=== PATIENT | female | born 1990 | race Caucasian/White ===

== ENCOUNTER 2017-10-01 06:36 | Emergency (ER) | payer BC, MEDICAID ==
[2017-10-01] MEDS ORDERED: 0.9 % SODIUM CHLORIDE 1000ML 1,000 ML IV ONE (06:49)
[2017-10-01] MEDS ORDERED: ONDANSETRON HCL IV 4 MG/2 ML VIAL IVP ONE ×2 (06:49→07:40)
[2017-10-01] MEDS ORDERED: 0.9 % SODIUM CHLORIDE 1,000 ML BAG IV ONE (07:07)
[2017-10-01] MEDS ORDERED: MORPHINE SULFATE 5 MG/ML PFS IVP ONE (07:08)
[2017-10-01 07:16] LABS: BASO % 0.5 % (0-6); EOS % 3.2 % (0-6); GRAN % 40.3 % (47-80); HEMATOCRIT 41.6 % (35.0-47.0); HEMOGLOBIN 13.7 gm/dl (11.6-16.0); LYMPH % 50.1 % (16-45); MEAN CELL VOLUME 89.7 fl (81-97); MEAN CORPUSCULAR HEMOGLOBIN 29.5 pg (27-33); MEAN CORPUSCULAR HGB CONC 32.9 g/dl (32-36); MEAN PLATELET VOLUME 10.2 fl (7.4-10.4); MONO % 5.9 % (0-9); PLATELET COUNT 310 K/uL (130-400); RED BLOOD COUNT 4.64 M/uL (3.80-5.40); WHITE BLOOD COUNT W/O DIFF 11.1 K/uL (4.2-12.2)
--- NOTE | 2017-10-01 07:18 | Emergency Department Record ---
History of Present Illness - General Chief complaint: Flank Pain Stated complaint: RIGHT SIDE PAIN Time Seen by Provider: 10/01/17 07:02 Source: Patient Mode of Arrival: Ambulatory Limitations: No limitations - History of Present Illness Initial comments: The patient is here due to a 3 hour hx of R flank pain. The pain is sharp and stabbing and intermittently radiates to the RLQ. She has had nausea and vomiting with the pain. She has no hx of previous problems with the R side of the abdomen but has had a similar problem on the L and was diagnosed with a L ovarian cyst that was ruptured. She denies any previous illnesses. MD Complaint: Other Onset/Timin -: Hour(s) Location: Other Radiation: RLQ Severity scale (1-10): 10 Quality: Sharp Consistency: Constant Improves with: None Worsens with: None Associated Symptoms: Nausea/vomiting - Related Data Home Medications Medication Instructions Recorded Confirmed Last Taken Lamotrigine [Lamictal Xr] 50 mg PO DAILY 10/01/17 10/01/17 Unknown Medroxyprogesterone Acetate [Depo 150 mg IM ASDIR 10/01/17 10/01/17 Unknown Provera] Prazosin HCl 2 mg PO DAILY 10/01/17 10/01/17 Unknown Quetiapine Fumarate [Seroquel] 50 mg PO DAILY 10/01/17 10/01/17 Unknown Previous Rx's Medication Instructions Recorded Hydrocodone/Acetaminophen [[place] 1 - 2 each PO .EVERY 4-6 HRS PRN 10/01/17 5-325 Tablet] #20 tablet Ibuprofen [Motrin] 800 mg PO TID PRN #20 tab 10/01/17 Tamsulosin HCl [Flomax] 0.4 mg PO DAILY #7 cap.er.24h 10/01/17 Allergies Allergy/AdvReac Type Severity Reaction Status Date / Time aripiprazole [From Abilify] Allergy SWELLING Verified 10/01/17 06:51 (GENERAL) Travel Screening - Travel/Exposure Within Last 30 Days Have you traveled within the last 30 days?: No - Travel Symptoms Symptom Screening: None Review of Systems Constitutional: Denies: Chills, Fever Eyes: Denies: Eye discharge ENT: Denies: Congestion Respiratory: Denies: Cough Past Medical History - SOCIAL HISTORY Smoking Status: Light tobacco smoker (<10/day) - RESPIRATORY Hx Respiratory Disorders: Yes Hx Asthma: Yes - CARDIOVASCULAR Hx Cardio Disorders: No - NEURO Hx Neuro Disorders: Yes Hx Seizures: Yes - GI Hx GI Disorders: No - Hx Genitourinary Disorders: No - ENDOCRINE Hx Endocrine Disorders: No - MUSCULOSKELETAL Hx Musculoskeletal Disorders: Yes Hx Back Injury: Yes - PSYCH Hx Psych Problems: Yes Hx Depression: Yes - HEMATOLOGY/ONCOLOGY Hx Hematology/Oncology Disorders: No Family Medical History Any Significant Family History?: Yes Hx Cancer: Grandparents Hx Diabetes: Grandparents Physical Exam - General General Appearance: Alert, Oriented x3, Cooperative, No acute distress - Head Head exam: Atraumatic, Normocephalic, Normal inspection - Eye Eye exam: Normal appearance, PERRL - Neck Neck exam: Normal inspection, Full ROM. negative: Tenderness - Respiratory Respiratory exam: Normal lung sounds bilaterally. negative: Respiratory distress - Cardiovascular Cardiovascular Exam: Regular rate, Normal rhythm, Normal heart sounds - GI/Abdominal GI/Abdominal exam: Soft. negative: Guarding, Rebound, Rigid, Tenderness (The abdomen is very nontender in all 4 quads.) - Extremities Extremities exam: Normal inspection, Full ROM, Normal capillary refill. negative: Tenderness - Neurological Neurological exam: Alert, Normal gait, Oriented X3. negative: Abnormal gait, Motor sensory deficit Course Vital Signs 10/01/17 06:50 Temperature 97.9 F Pulse Rate [ 71 Pulse Ox Probe] Respiratory 18 Rate Blood Pressure 111/90 [Right Arm] Pulse Ox 96 - Reevaluation(s) Reevaluation #1: The patient is doing better at this time. Her pain is resolving and her nausea is gone. I did explain the CT report to her and the need for Urology F/U. 10/01/17 08:26 Reevaluation #2: The patient is doing well at this time. Her pain is well controlled and she feels comfortable going home. I did get the patient an appointment with Dr. Valero for today at 1:30 and did consult with him on the case. 10/01/17 09:40 Medical Decision Making - Data Complexity MDM Data: Labs Ordered and/or Reviewed, X-Ray Ordered and/or Reviewed - Lab Data Result diagrams: 10/01/17 07:10 10/01/17 07:10 - Radiology Data Radiology results: Report reviewed (CT: 3.5 mm R UVJ stone with mild to mod hydro.) Disposition Disposition: Discharge Clinical Impression: Ureteral calculus Disposition: Home, Self-Care Condition: (2) Stable Instructions: Renal Colic (ED) Additional Instructions: Please take the Motrin and or [place] for pain if needed. Please use the Flomax if given the OK by Dr. Valero. Keep the appointment at 1:30 today in the specialty clinic. Return to the ER for any increased pain, fever, or vomiting. Prescriptions: Hydrocodone/Acetaminophen [[place] 5-325 Tablet] 1 - 2 each PO .EVERY 4-6 HRS PRN #20 tablet PRN Reason: Pain Ibuprofen [Motrin] 800 mg PO TID PRN #20 tab PRN Reason: Pain Tamsulosin HCl [Flomax] 0.4 mg PO DAILY #7 cap.er.24h Referrals: [facility] Specialty Clinics [Provider Group] Forms: Patient Portal Access Time of Disposition: 09:39 Quality - Quality Measures Quality Measures: N/A - Blood Pressure Screening View Details: Yes Does Patient Have Any of the Following: No Blood Pressure Classification: Hypertensive Reading Systolic Measurement: 136 Diastolic Measurement: 90 Screening for High Blood Pressure: < Pre-Hypertensive BP, F/U Documented > [ G8950] Pre-Hypertensive Follow-up Interventions: Referral to alternative/primary care provider.
[2017-10-01 07:21] LABS: URINE APPEARANCE CLEAR; URINE BILIRUBIN SMALL (NEGATIVE); URINE BLOOD LARGE (NEGATIVE); URINE COLOR YELLOW; URINE GLUCOSE (UA) NEGATIVE (NEGATIVE); URINE KETONE NEGATIVE (NEGATIVE); URINE LEUKOCYTE ESTERASE TRACE (NEGATIVE); URINE UROBILINOGEN 0.2 E.U./dL (0.20 - 1.00)
[2017-10-01 07:24] LABS: HCG,QUALITATIVE URINE NEGATIVE (NEGATIVE)
[2017-10-01 07:25] LABS: BLOOD UREA NITROGEN 11 mg/dL (6-20); CREATININE 0.6 mg/dL (0.5-0.9); EST GLOMERULAR FILTRATION RATE > 60 mL/min
[2017-10-01 07:26] LABS: TOTAL PROTEIN 7.5 g/dL (6.6-8.7)
[2017-10-01 07:27] LABS: URINE NITRITE NEGATIVE (NEGATIVE); URINE WBC 0 - 2 (0-2/hpf)
[2017-10-01 07:28] LABS: GLUCOSE,RANDOM 116 mg/dL (74-109)
[2017-10-01] MEDS ORDERED: KETOROLAC 30 MG/ML VIAL IVP ONE ×2 (07:28→08:45)
[2017-10-01 07:29] LABS: URINE BACTERIA 1+
[2017-10-01 07:30] LABS: ALBUMIN 4.4 g/dL (4.0-5.0); ALKALINE PHOSPHATASE 63 U/L (35-104); ALT/SGPT 15 U/L (<33); AST/SGOT 16 U/L (10.0-35.0)
[2017-10-01 07:31] LABS: BILIRUBIN,DIRECT < 0.2 mg/dL (0-0.3); LIPASE 16 U/L (13-60)
[2017-10-01] MEDS ORDERED: HYDROMORPHONE HCL 1 MG/ML SYRINGE IVP ONE (08:11)
--- NOTE | 2017-10-01 20:09 | CT SCAN REPORT ---
EXAM: CT SCAN ABDOMEN/PELVIS WO CONTRAST HISTORY: RIGHT FLANK PAIN WITH NAUSEA AND VOMITING TODAY. PRIOR GASTRIC SLEEVE SURGERY AND OVARIAN CYST REMOVAL. TECHNIQUE: Helical CT examination of the abdomen and pelvis is performed without oral or intravenous contrast administration. Lack of oral and IV contrast utilization limits evaluation of the bowel and solid viscera, respectively. COMPARISON: Ultrasound pelvis with transvaginal imaging dated 07/28/2010. FINDINGS: There is minimal linear scarring vs. atelectasis in the lateral left lung base. A tiny subpleural nodule in the lateral right lung base is present measuring 3 mm. This is nonspecific but likely postinflammatory given patient age. There is subtle ground-glass opacity within the lingula consistent with atelectasis or less likely infiltrate. No pleural or pericardial effusion. The heart is not enlarged. No focal abnormality demonstrated within the liver, spleen, pancreas, nor adrenal glands. The gallbladder is unremarkable and no biliary ductal dilatation is seen. No intraabdominal nor retroperitoneal lymphadenopathy is identified. The vasculature, as visualized, is normal in appearance. The right kidney is mildly enlarged. There is mild to moderate right hydroureteronephrosis down to the level just proximal to the UVJ, where there is an obstructing calculus measuring 3.5 mm in diameter. The left kidney and left renal collecting system are normal in appearance. Post gastric sleeve surgery changes are present. No gross bowel dilatation nor bowel wall thickening. The appendix is visualized in the right upper quadrant and is normal in appearance. No pelvic mass, lymphadenopathy, or free pelvic fluid. Evaluation of the urinary bladder is limited by lack of distention. The uterus is normal in size. A dominant right ovarian follicle/cyst is suggested measuring 2.2 x 2.4 cm. No lytic or blastic bone lesion. IMPRESSION: 1. A 3.5 MM OBSTRUCTING CALCULUS IN THE DISTAL RIGHT URETER JUST PROXIMAL TO THE UVJ CAUSING MILD TO MODERATE RIGHT HYDROURETERONEPHROSIS. 2. POST GASTRIC SLEEVE SURGERY CHANGES. 3. LOW-DENSITY STRUCTURE IN THE RIGHT OVARY MEASURING 2.4 X 2.3 CM. THIS IS NONSPECIFIC BUT LIKELY A DOMINANT FOLLICLE/CYST. 4. SMALL AREA OF GROUND-GLASS OPACITY WITHIN THE INFERIOR LINGULA CONSISTENT WITH ATELECTASIS OR LESS LIKELY INFILTRATE. JOB NUMBER: [id number] & [id number] [facility]
== END 2017-10-01 09:45 | disposition home or self-care (01) ==
LOC: ER 06:36
DX: N13.2 Hydronephrosis with renal and ureteral calculous obstruction (principal); R10.31 Right lower quadrant pain; R11.2 Nausea with vomiting, unspecified
CPT/HCPCS: 74176; 80048; 80076; 81001; 81025; 83690; 85025; 96374; 96375; 96376; 99284; J1170; J1885; J2405; J7030

== ENCOUNTER 2018-05-21 21:27 | Observation (INO) | payer MEDICAID ==
[2018-05-21] MEDS ORDERED: IPRATROPIUM/ALBUTEROL (0.5MG/3MG) NEB INH ONE (21:34)
[2018-05-21] MEDS ORDERED: PREDNISONE 20 MG TAB PO ONE (21:34)
[2018-05-21] MEDS ORDERED: ALBUTEROL SULFATE (0.083%) 2.5 MG/3 ML NEB INH ONE (21:41)
[2018-05-21] MEDS ORDERED: IPRATROPIUM BR 0.02% NEB (0.5MG) INH ONE (21:41)
--- NOTE | 2018-05-21 21:44 | Emergency Department Record ---
History of Present Illness - General Chief Complaint: Shortness of breath Stated Complaint: WINSOME,COUGH,ELEVATED TEMP Time Seen by Provider: 05/21/18 21:34 Source: Patient Mode of Arrival: Ambulatory Limitations: No limitations - History of Present Illness Initial Comments: 27 yo female presents to ED for evaluation of difficulty in breathing, wheezing , and fever symptoms that began 4-5 days ago. Patient reports a previous history of exercise-induced asthma previously, denies regular exacerbations. Patient reports that she was seen in [facility] 3 days ago for her symptoms ( not as severe), was not given any prescriptions for her symptoms. Patient denies health problems at her baseline. MD Complaint: Shortness of breath Onset/Timin -: Days(s) Severity: Moderate Consistency: Constant Improves With: Nothing Worsens With: Coughing Known History Of: Asthma Context: Recent URI Associated Symptoms: Denies other symptoms Treatments Prior to Arrival: None - Related Data Home Oxygen Therapy: No Home Medications Medication Instructions Recorded Confirmed Last Taken Medroxyprogesterone Acetate [Depo 150 mg IM ASDIR 05/21/18 05/21/18 Unknown Provera] Allergies Allergy/AdvReac Type Severity Reaction Status Date / Time aripiprazole [From Abilify] Allergy SWELLING Verified 10/01/17 06:51 (GENERAL) Review of Systems Constitutional: Reports: Fever. Denies: Chills, Night sweats Eyes: Denies: Eye discharge, Eye pain ENT: Denies: Congestion, Ear pain, Epistaxis Respiratory: Reports: Cough, Dyspnea, Wheezes Cardiovascular: Reports: Dyspnea on exertion. Denies: Chest pain, Edema Endocrine: Denies: Fatigue, Heat or cold intolerance Gastrointestinal: Denies: Abdominal pain, Nausea, Vomiting Genitourinary: Denies: Incontinence, Retention Musculoskeletal: Denies: Arthralgia, Back pain Skin: Denies: Bruising, Change in color Neurological: Denies: Abnormal gait, Confusion, Headache, Seizure Psychiatric: Denies: Anxiety Hematological/Lymphatic: Denies: Anemia, Blood Clots Past Medical History - SOCIAL HISTORY Smoking Status: Light tobacco smoker (<10/day) - RESPIRATORY Hx Respiratory Disorders: Yes Hx Asthma: Yes - CARDIOVASCULAR Hx Cardio Disorders: No - NEURO Hx Neuro Disorders: Yes Hx Seizures: Yes - GI Hx GI Disorders: No - Hx Genitourinary Disorders: No - ENDOCRINE Hx Endocrine Disorders: No - MUSCULOSKELETAL Hx Musculoskeletal Disorders: Yes Hx Back Injury: Yes - PSYCH Hx Psych Problems: Yes Hx Depression: Yes - HEMATOLOGY/ONCOLOGY Hx Hematology/Oncology Disorders: No Family Medical History Hx Cancer: Grandparents Hx Diabetes: Grandparents Physical Exam - General General Appearance: Alert, Oriented x3, Cooperative, Moderate distress Limitations: No limitations - Head Head exam: Atraumatic, Normocephalic, Normal inspection Head exam detail: negative: Abrasion, Contusion, Mcgill's sign, General tenderness, Hematoma, Laceration - Eye Eye exam: Normal appearance. negative: Conjunctival injection, Periorbital swelling, Periorbital tenderness, Scleral icterus - ENT Ear exam: negative: Auricular hematoma, Auricular trauma Nasal Exam: negative: Active bleeding, Discharge, Dried blood, Foreign body Mouth exam: negative: Drooling, Laceration, Muffled voice, Tongue elevation - Neck Neck exam: Normal inspection. negative: Meningismus, Tenderness - Respiratory Respiratory exam: Decreased breath sounds, Respiratory distress, Wheezes. negative: Rhonchi, Stridor - Cardiovascular Cardiovascular Exam: Normal rhythm, Normal heart sounds, Tachycardia - GI/Abdominal GI/Abdominal exam: Soft. negative: Rebound, Rigid, Tenderness - Rectal Rectal exam: Deferred - exam: Deferred - Extremities Extremities exam: Normal inspection. negative: Calf tenderness, Pedal edema, Tenderness - Back Back exam: Denies: CVA tenderness (R), CVA tenderness (L) - Neurological Neurological exam: Alert, Normal gait, Oriented X3 - Psychiatric Psychiatric exam: Normal affect, Normal mood - Skin Skin exam: Normal color. negative: Abrasion Type of lesion: negative: abrasion Course Vital Signs 05/21/18 21:32 Temperature 98.7 F Pulse Rate [ 112 H Pulse Ox Probe] Respiratory 32 H Rate Blood Pressure 117/65 [Left Arm] Pulse Ox 91 L - Reevaluation(s) Reevaluation #1: 05/21/18 21:43 Duoneb ordered to be given followed by Prednisone 60 mg. Will then obtain CXR and reassess, likely repeat albuterol treatment at that time. Reevaluation #2: 05/21/18 22:29 Patient was reassesssed follwoing return from radiology: RR 26, biox 90-93%, pulse 125. Will place IV, obtain laboratory studies and D-dimer, initiate treatment for bronchitis with Zithromax and likely admit as she has not significantly improved following 2nd breathing treatment. Reevaluation #3: 05/21/18 23:09 Laboratory studies were reviewed D-Dimer 0.39. WBC 13.8. Labs are otherwise grossly unremarkable for an acute process. CXR: Subtle opacity LLL Reevaluation #4: 05/21/18 23:19 Patient was reassessed and updated on her laboratory and CXR findings, resting more comfortably on 2 L NC. Will admit for observation and pulmonary toilet as well as antibiotics and IV Solumedrol at this time. Patient and her mother are in agreement with the plan of care as discussed. Reevaluation #5: 05/22/18 06:45 Case was discussed with Telma (Admitting [employer]), will accept admission at this time. Medical Decision Making - Lab Data Result diagrams: 05/22/18 08:28 05/22/18 08:28 Disposition Disposition: Admit Clinical Impression: Hypoxia CAP (community acquired pneumonia) Qualifiers: Laterality: left Lung location: lower lobe of lung Qualified Code(s): J18.1 - Lobar pneumonia, unspecified organism Disposition: Still a Patient at [facility] Decision to Admit: Admit from ER Decision to Admit Date: 05/21/18 Decision to Admit Time: 23:21 Condition: (2) Stable Time of Disposition: 23:21 Quality - Quality Measures Quality Measures: N/A - Blood Pressure Screening Does Patient Have Any of the Following: No Blood Pressure Classification: Hypertensive Reading Systolic Measurement: 138 Diastolic Measurement: 95 Screening for High Blood Pressure: < First Hypertensive BP, F/U Documented > [ G8950] First Hypertensive Follow-up Interventions: Referral to alternative/primary care provider.
[2018-05-21] MEDS ORDERED: AZITHROMYCIN 500 MG in 0.9 % SODIUM CHLORIDE 250ML 250 ML IVPB ONE (22:28)
[2018-05-21] MEDS ORDERED: 0.9 % SODIUM CHLORIDE 1000ML 1,000 ML IV SCH (22:30)
[2018-05-21 22:40] LABS: BASO % 0.2 % (0-6); EOS % 3.7 % (0-6); GRAN % 65.9 % (47-80); HEMATOCRIT 41.7 % (35.0-47.0); HEMOGLOBIN 13.8 gm/dl (11.6-16.0); LYMPH % 24.9 % (16-45); MEAN CELL VOLUME 91.9 fl (81-97); MEAN CORPUSCULAR HEMOGLOBIN 30.4 pg (27-33); MEAN CORPUSCULAR HGB CONC 33.1 g/dl (32-36); MEAN PLATELET VOLUME 9.7 fl (7.4-10.4); MONO % 5.3 % (0-9); PLATELET COUNT 272 K/uL (130-400); RED BLOOD COUNT 4.54 M/uL (3.80-5.40); RED CELL DISTRIBUTION WIDTH 12.5 % (11.5-14.5); WHITE BLOOD COUNT W/O DIFF 13.8 K/uL (4.2-12.2)
[2018-05-21 22:53] LABS: BLOOD UREA NITROGEN 7 mg/dL (6-20); CREATININE 0.6 mg/dL (0.5-0.9); EST GLOMERULAR FILTRATION RATE > 60 mL/min
[2018-05-21 22:54] LABS: TOTAL PROTEIN 7.6 g/dL (6.6-8.7)
[2018-05-21 22:56] LABS: GLUCOSE,RANDOM 139 mg/dL (74-109)
[2018-05-21 22:58] LABS: ALB/GLOB RATIO 1.4 (1.1-1.8); ALBUMIN 4.4 g/dL (4.0-5.0); ALT/SGPT 13 U/L (<33); AST/SGOT 15 U/L (10.0-35.0)
[2018-05-21 22:59] LABS: ALKALINE PHOSPHATASE 98 U/L (35-104)
[2018-05-21] MEDS ORDERED: ALBUTEROL SULFATE (0.083%) 2.5 MG/3 ML NEB INH PRN (23:55)
[2018-05-21] MEDS ORDERED: MEDROXYPROGESTERONE ACETATE 150 MG/ML VIAL IM SCH (23:55)
[2018-05-21] MEDS ORDERED: 0.9 % SODIUM CHLORIDE 1000ML 1,000 ML IV PRN (23:55)
[2018-05-22] MEDS ORDERED: CEFTRIAXONE SODIUM 1 GM in 0.9 % SODIUM CHLORIDE 100ML 100 ML IVPB SCH (01:00)
[2018-05-22] MEDS ORDERED: LAMOTRIGINE 100 MG TABLET PO SCH (01:00)
[2018-05-22] MEDS: MIRTAZAPINE 15 MG TABLET PO SCH ×2 (01:02→22:51)
[2018-05-22] MEDS: BUPROPION HCL 150 MG TAB.SR.12H PO SCH ×4 (01:02→10:50)
[2018-05-22] MEDS: QUETIAPINE FUMARATE 25 MG TABLET PO SCH ×2 (01:02→22:51)
[2018-05-22] MEDS: IPRATROPIUM/ALBUTEROL (0.5MG/3MG) NEB INH SCH ×6 (01:21→21:41)
--- NOTE | 2018-05-22 07:18 | RADIOLOGY REPORT ---
EXAM: CHEST, TWO VIEWS HISTORY: DIFFICULTY IN BREATHING. TECHNIQUE: Frontal and lateral views of the chest were performed. FINDINGS: The heart size is normal. There is a subtle opacity projecting over the left lower lobe. No pleural effusion. Mild degenerative change of the thoracic spine. IMPRESSION: 1. SUBTLE OPACITY PROJECTING OVER THE LEFT LOWER WITH MILD BRONCHIAL WALL THICKENING. NO PLEURAL EFFUSION. 2. MILD DEGENERATIVE CHANGE OF THE THORACIC SPINE. JOB NUMBER: [id number] [facility]
[2018-05-22 08:32] LABS: BASO % 0.3 % (0-6); HEMATOCRIT 40.3 % (35.0-47.0); LYMPH % 14.6 % (16-45); MEAN CELL VOLUME 91.8 fl (81-97); MEAN CORPUSCULAR HEMOGLOBIN 29.6 pg (27-33); MEAN CORPUSCULAR HGB CONC 32.3 g/dl (32-36); MEAN PLATELET VOLUME 9.8 fl (7.4-10.4); MONO % 5.1 % (0-9); PLATELET COUNT 294 K/uL (130-400); RED BLOOD COUNT 4.39 M/uL (3.80-5.40); RED CELL DISTRIBUTION WIDTH 12.5 % (11.5-14.5); WHITE BLOOD COUNT W/O DIFF 11.9 K/uL (4.2-12.2)
[2018-05-22 08:58] LABS: BLOOD UREA NITROGEN 7 mg/dL (6-20); CREATININE 0.6 mg/dL (0.5-0.9); EST GLOMERULAR FILTRATION RATE > 60 mL/min; GLUCOSE,RANDOM 162 mg/dL (74-109)
[2018-05-22] MEDS ORDERED: AZITHROMYCIN 500 MG TABLET PO ONE (09:03)
[2018-05-22] MEDS ORDERED: METHYLPREDNISOLONE PF 125MG/VIAL IVP SCH (10:00)
[2018-05-22] MEDS: CEFDINIR 300 MG CAPSULE PO SCH ×2 (10:35→22:52)
[2018-05-22] MEDS: PREDNISONE 20 MG TAB PO SCH (10:36)
--- NOTE | 2018-05-22 11:40 | History & Physical ---
History of Present Illness - Date of Service Date of Service for History & Physical: 05/22/18 - History of Present Illness Admitting Diagnosis: Hypoxia. CAP History of Present Illness: PMHx: Schitzoaffective Disorder, Smoker Pt states that 5 days ago she had nasal discharge/congestion, with cough, and ear pain. [facility] and determined not bacterial infection at the time. She continued to smoke and progressively became worse over the next few days. She felt SOB, had cough and wheezing so decided to go to ED. ED course: Elevated WBC count. Tachycardic. CXR positive for PNA. Hypoxic, requiring 2L NC. Pt was diagnosed with CAP and admitted for further treatment and observation. Today she states that she feels that she is better than yesterday. She feels less SOB. Still complains of cough and wheezing. Travel Screening - Travel/Exposure Within Last 30 Days Have you traveled within the last 30 days?: No - Travel/Exposure Within Last Year Have you traveled outside the [place] in the last year?: No - Additonal Travel Details Have you been exposed to anyone with a communicable illness?: No - Travel Symptoms Symptom Screening: None Review of Systems Constitutional: Denies: Chills, Fever, Night sweats Eyes: Denies: Eye discharge, Eye pain ENT: Denies: Congestion, Ear pain, Epistaxis, Throat pain Respiratory: Reports: Cough, Dyspnea, Wheezes. Denies: Hemoptysis, Stridor Cardiovascular: Reports: Dyspnea on exertion. Denies: Chest pain, Edema, Palpitations Endocrine: Reports: Fatigue. Denies: Heat or cold intolerance Gastrointestinal: Denies: Abdominal pain, Constipation, Diarrhea, Nausea, Vomiting Genitourinary: Denies: Dysuria, Frequency, Hematuria, Incontinence, Retention Musculoskeletal: Denies: Arthralgia, Back pain Skin: Denies: Bruising, Change in color Neurological: Denies: Abnormal gait, Confusion, Headache, Seizure Psychiatric: Denies: Anxiety Hematological/Lymphatic: Denies: Anemia, Blood Clots Past Medical History - SOCIAL HISTORY Smoking Status: Light tobacco smoker (<10/day) - RESPIRATORY Hx Respiratory Disorders: Yes Hx Asthma: Yes - CARDIOVASCULAR Hx Cardio Disorders: No - NEURO Hx Neuro Disorders: Yes Hx Seizures: Yes - GI Hx GI Disorders: No - Hx Genitourinary Disorders: No - ENDOCRINE Hx Endocrine Disorders: No - MUSCULOSKELETAL Hx Musculoskeletal Disorders: Yes Hx Back Injury: Yes - PSYCH Hx Psych Problems: Yes Hx Depression: Yes - HEMATOLOGY/ONCOLOGY Hx Hematology/Oncology Disorders: No Family Medical History Hx Cancer: Grandparents Hx Diabetes: Grandparents H&P Meds/Allergies - Allergies Allergies: Allergies Allergy/AdvReac Type Severity Reaction Status Date / Time aripiprazole [From Abilify] Allergy SWELLING Verified 10/01/17 06:51 (GENERAL) - Home Medications Home Medications Medication Instructions Recorded Confirmed Last Taken Medroxyprogesterone Acetate [Depo 150 mg IM ASDIR 05/21/18 05/21/18 Unknown Provera] - Active Medications Active Medications: Current Medications Acetaminophen (Tylenol 500mg Tab) 1,000 mg PO Q6H PRN PRN Reason: PAIN - MILD(1-4)/FEVER Albuterol Sulfate () 2.5 mg INH RESP.Q2H PRN PRN Reason: DIFFICULTY IN BREATHING Albuterol/Ipratropium (Duoneb) 3 ml INH RESP.Q4H [facility] Last Admin: 05/22/18 10:04 Dose: 3 ml Azithromycin (Zithromax) 250 mg PO DAILY [facility] Stop: 05/27/18 00:00 Cefdinir (Cefdinir) 300 mg PO BID [facility] Stop: 06/01/18 00:00 Last Admin: 05/22/18 10:35 Dose: 300 mg Mirtazapine (Remeron) 30 mg PO QHS [facility] Last Admin: 05/22/18 01:02 Dose: 30 mg Non-Formulary Medication (Lamotrigine [Lamictal Xr]) 50 mg PO DAILY [facility] Non-Formulary Medication (Prazosin Hcl [Prazosin Hcl]) 2 mg PO DAILY [facility] Prednisone (Prednisone 20mg) [facility] Stop: 05/26/18 00:00 Last Admin: 05/22/18 10:36 Dose: 60 mg Quetiapine Fumarate (Seroquel) 50 mg PO QHS [facility] Last Admin: 05/22/18 01:02 Dose: 50 mg Physical Exam - Vital Signs Vital Signs: Vital Signs - Last 24 Hrs Temp Pulse Pulse Resp BP BP Pulse Ox 05/22/18 10:06 98 H 18 99 05/22/18 01:24 112 H 22 93 L 05/22/18 00:00 98.7 F 113 H 20 138/95 92 L 05/21/18 23:46 111 H 32 H 102/65 93 L 05/21/18 22:50 111 H 94 L 05/21/18 21:57 112 H 22 98 05/21/18 21:42 116 H 20 92 L 05/21/18 21:32 98.7 F 112 H 32 H 117/65 91 L - General General Appearance: Alert, Oriented x3, Cooperative, No acute distress Limitations: No limitations - Head Head exam: Atraumatic, Normocephalic, Normal inspection Head exam detail: negative: Abrasion, Contusion, Mcgill's sign, General tenderness, Hematoma, Laceration - Eye Eye exam: Normal appearance, EOMI. negative: Conjunctival injection, Periorbital swelling, Periorbital tenderness, Scleral icterus - ENT ENT exam: Mucous membranes moist, Normal external ear exam Ear exam: negative: Auricular hematoma, Auricular trauma Nasal Exam: Normal inspection. negative: Active bleeding, Discharge, Dried blood, Foreign body Mouth exam: Normal external inspection. negative: Drooling, Laceration, Muffled voice, Tongue elevation - Neck Neck exam: Normal inspection. negative: Meningismus, Tenderness - Respiratory Respiratory exam: Decreased breath sounds, Wheezes (throughout all lung jeter) . negative: Rhonchi, Stridor - Cardiovascular Cardiovascular Exam: Normal rhythm, Normal heart sounds, Tachycardia - GI/Abdominal GI/Abdominal exam: Soft, Normal bowel sounds. negative: Rebound, Rigid, Tenderness - Rectal Rectal exam: Deferred - exam: Deferred - Extremities Extremities exam: Normal inspection. negative: Calf tenderness, Pedal edema, Tenderness - Back Back exam: Denies: CVA tenderness (R), CVA tenderness (L) - Neurological Neurological exam: Alert, Normal gait, Oriented X3 - Psychiatric Psychiatric exam: Normal affect, Normal mood - Skin Skin exam: Normal color. negative: Abrasion Type of lesion: negative: abrasion Results - Labs Result Diagrams: 05/22/18 08:28 05/22/18 08:28 Labs Last 24 Hours: Laboratory Results - last 24 hr 05/21/18 05/21/18 05/21/18 22:35 22:35 22:35 WBC 13.8 H RBC 4.54 Hgb 13.8 Hct 41.7 MCV 91.9 MCH 30.4 MCHC 33.1 RDW 12.5 Plt Count 272 MPV 9.7 Gran % 65.9 Neutrophils % Lymphocytes % 24.9 Monocytes % 5.3 Eosinophils % 3.7 Basophils % 0.2 Lymphocytes Monocytes D-Dimer 0.39 Sodium 139 Potassium 3.4 Chloride 101 Carbon Dioxide 24.0 Anion Gap 14.0 BUN 7 Creatinine 0.6 Estimated GFR > 60 Random Glucose 139 H Calcium 9.4 Total Bilirubin 0.30 AST 15 ALT 13 Alkaline Phosphatase 98 Total Protein 7.6 Albumin 4.4 Globulin 3.2 Albumin/Globulin Ratio 1.4 05/22/18 05/22/18 08:28 08:28 WBC 11.9 RBC 4.39 Hgb 13.0 Hct 40.3 MCV 91.8 MCH 29.6 MCHC 32.3 RDW 12.5 Plt Count 294 MPV 9.8 Gran % 80.0 Neutrophils % Not Reportable Lymphocytes % 14.6 L Monocytes % 5.1 Eosinophils % 0.0 Basophils % 0.3 Lymphocytes Not Reportable Monocytes Not Reportable D-Dimer Sodium 143 Potassium 3.7 Chloride 107 Carbon Dioxide 21.0 L Anion Gap 15.0 BUN 7 Creatinine 0.6 Estimated GFR > 60 Random Glucose 162 H Calcium 9.2 Total Bilirubin AST ALT Alkaline Phosphatase Total Protein Albumin Globulin Albumin/Globulin Ratio VTE H&P Assessment - Risk for VTE Risk for VTE: Yes Risk Level: Very Low (SCD's prescribed) Risk Assessment Date: 05/22/18 Risk Assessment Time: 11:45 VTE Orders Placed or Will Be Placed: Yes Plan - Detailed Diagnosis and Plan (1) CAP (community acquired pneumonia) Plan: - White count reduced to normal today. - Oxygen per NC - Wean as tolerated. - Can tolerate orals. - Azithromycin and omnicef orals started. - Prednisone 60mg daily x 4 days - Duoneb per respiratory - S/P rocephin IVPB on admission. - CBC and BMP daily. 05/22/18 11:51 Current Visit: Yes Status: Acute Qualifiers: Laterality: left Lung location: lower lobe of lung Qualified Code(s): J18.1 - Lobar pneumonia, unspecified organism Base Code: J18.9 - PNEUMONIA, UNSPECIFIED ORGANISM Priority: High (2) Schizoaffective disorder Plan: - Continue home meds buproprion, lamictal, seroquel, prazosin as prescribed. Current Visit: Yes Status: Acute Base Code: F25.9 - SCHIZOAFFECTIVE DISORDER , UNSPECIFIED (3) Smoker Plan: - light smoker. - Denies the need for nicotine patches today. - motivated to quit given current PNA. Current Visit: Yes Status: Acute Base Code: F17.200 - NICOTINE DEPENDENCE, UNSPECIFIED, UNCOMPLICATED - Disposition Home once off oxygen and improving vitals.
[2018-05-22] MEDS: LAMOTRIGINE 50 MG PO SCH (13:32)
[2018-05-22] MEDS: ACETAMINOPHEN 500 MG TABLET PO PRN (19:44)
[2018-05-22] MEDS ORDERED: AZITHROMYCIN 500 MG in 0.9 % SODIUM CHLORIDE 250ML 250 ML IVPB SCH (22:00)
[2018-05-22] MEDS ORDERED: PATIENT OWN MED: PRAZOSIN 2 MG PO SCH (22:00)
[2018-05-23] MEDS: IPRATROPIUM/ALBUTEROL (0.5MG/3MG) NEB INH SCH ×3 (06:30→10:05)
[2018-05-23 06:50] LABS: BASO % 0.3 % (0-6); GRAN % 55.9 % (47-80); HEMATOCRIT 39.7 % (35.0-47.0); HEMOGLOBIN 12.7 gm/dl (11.6-16.0); LYMPH % 34.6 % (16-45); MEAN CORPUSCULAR HEMOGLOBIN 29.7 pg (27-33); MEAN PLATELET VOLUME 9.9 fl (7.4-10.4); MONO % 6.2 % (0-9); PLATELET COUNT 260 K/uL (130-400); RED BLOOD COUNT 4.27 M/uL (3.80-5.40); RED CELL DISTRIBUTION WIDTH 12.8 % (11.5-14.5); WHITE BLOOD COUNT W/O DIFF 11.9 K/uL (4.2-12.2)
[2018-05-23 07:07] LABS: BLOOD UREA NITROGEN 9 mg/dL (6-20); CREATININE 0.6 mg/dL (0.5-0.9); EST GLOMERULAR FILTRATION RATE > 60 mL/min; GLUCOSE,RANDOM 89 mg/dL (74-109)
[2018-05-23] MEDS: CEFDINIR 300 MG CAPSULE PO SCH (09:17)
[2018-05-23] MEDS: PREDNISONE 20 MG TAB PO SCH (09:17)
[2018-05-23] MEDS: LAMOTRIGINE 50 MG PO SCH (09:18)
[2018-05-23] MEDS ORDERED: ONDANSETRON 4 MG ODT TABLET SL ONE (09:45)
[2018-05-23] MEDS ORDERED: BUPROPION HCL 300 MG PO SCH (10:00)
[2018-05-23] MEDS ORDERED: AZITHROMYCIN 250 MG TABLET PO SCH (10:00)
--- NOTE | 2018-05-23 11:23 | Discharge Summary ---
Providers Discharge Summary Date: 05/23/18 Date of admission: 05/21/18 23:48 Expected Date of Discharge: 05/23/18 Attending physician: RAFFI CALDERON Primary care physician: GUERITA CASTILLO Physical Exam - Vital Signs Vital Signs: Vital Signs - Last 24 Hrs Temp Pulse Pulse Resp BP Pulse Ox 05/23/18 10:05 94 H 18 95 05/23/18 09:00 97.7 F 131 H 16 130/88 95 05/23/18 06:37 98 H 20 95 05/22/18 21:43 94 H 20 94 L 05/22/18 21:00 97.9 F 87 17 135/92 93 L 05/22/18 18:26 99 H 18 95 05/22/18 17:18 97.9 F 106 H 18 144/85 97 05/22/18 14:15 101 H 18 99 05/22/18 13:18 97.9 F 116 H 18 143/85 95 - General General Appearance: Alert, Oriented x3, Cooperative, Moderate distress Limitations: No limitations - Head Head exam: Atraumatic, Normocephalic, Normal inspection Head exam detail: negative: Abrasion, Contusion, Mcgill's sign, General tenderness, Hematoma, Laceration - Eye Eye exam: Normal appearance. negative: Conjunctival injection, Periorbital swelling, Periorbital tenderness, Scleral icterus - ENT ENT exam: Mucous membranes moist, Normal external ear exam Ear exam: negative: Auricular hematoma, Auricular trauma Nasal Exam: negative: Active bleeding, Discharge, Dried blood, Foreign body Mouth exam: negative: Drooling, Laceration, Muffled voice, Tongue elevation - Neck Neck exam: Normal inspection. negative: Meningismus, Tenderness - Respiratory Respiratory exam: Decreased breath sounds, Wheezes. negative: Rhonchi, Stridor - Cardiovascular Cardiovascular Exam: Normal rhythm, Normal heart sounds, Tachycardia - GI/Abdominal GI/Abdominal exam: Soft. negative: Rebound, Rigid, Tenderness - Rectal Rectal exam: Deferred - exam: Deferred - Extremities Extremities exam: Normal inspection. negative: Calf tenderness, Pedal edema, Tenderness - Back Back exam: Denies: CVA tenderness (R), CVA tenderness (L) - Neurological Neurological exam: Alert, Normal gait, Oriented X3 - Psychiatric Psychiatric exam: Normal affect, Normal mood - Skin Skin exam: Normal color. negative: Abrasion Type of lesion: negative: abrasion Hospitalization - Hospitalization Admission Diagnosis: Hypoxia. CAP - Problem List/Discharge Diagnosis (1) CAP (community acquired pneumonia) Current Visit: Yes Status: Acute Discharge Diagnosis: Laterality: left Lung location: lower lobe of lung Qualified Code(s): J18.1 - Lobar pneumonia, unspecified organism Base Code: J18.9 - PNEUMONIA, UNSPECIFIED ORGANISM Comment: - White count reduced to normal today. - 95% oxygen sat on room air - Can tolerate PO abx- cefdinir 300mg bid and azithromycin 250mg daily (total 5 days therapy) - Prednisone 60mg daily x 3 more days - Will d/c home with Rx for nebulizer to continue albuterol nebs q4h while awake , recommended for 5 more days (2) Hypoxia Current Visit: Yes Status: Acute Base Code: R09.02 - HYPOXEMIA (3) Schizoaffective disorder Current Visit: Yes Status: Acute Base Code: F25.9 - SCHIZOAFFECTIVE DISORDER , UNSPECIFIED Comment: - Continue home meds buproprion, lamictal, seroquel, prazosin as prescribed. (4) Smoker Current Visit: Yes Status: Acute Base Code: F17.200 - NICOTINE DEPENDENCE, UNSPECIFIED, UNCOMPLICATED Comment: - light smoker. - Denies the need for nicotine patches today. - motivated to quit given current PNA. - Hospitalization Course Disposition: Home, Self-Care Hospital Course: PMHx: Schitzoaffective Disorder, Smoker Pt states that 5 days ago she had nasal discharge/congestion, with cough, and ear pain. Was seen in [facility] and determined not bacterial infection at the time. She continued to smoke and progressively became worse over the next few days. She felt SOB, had cough and wheezing so decided to go to ED. ED course: Elevated WBC count. Tachycardic. CXR positive for PNA. Hypoxic, requiring 2L NC. Pt was diagnosed with CAP and admitted for further treatment and observation. Today she states that she feels that she is better than yesterday. She feels less SOB. Still complains of cough and wheezing. 05/23/18: Pt. reports continued improvement in shortness of breath. She is tolerating PO abx and her labs have continued to improve: CBC and CMP normal today. She is now on room air and maintaining sats around 95%. Plan to discharge home and continue cefdinir 300mg bid and azithromycin 250mg daily for 3 more days. Will provide prescription for nebulizer and supplies for continued albuterol treatments- q4h while awake. Recommend f/u with PCP in 3-5 days. Procedures: Imaging and X-Rays 05/21/18 21:34 CHEST 2 VIEWS [RAD] Stat Abnormal Labs: Abnormal Lab Results 05/21/18 05/21/18 05/22/18 Range/Units 22:35 22:35 08:28 WBC 13.8 H (4.2-12.2) K/uL Lymphocytes % 14.6 L (16-45) % Carbon Dioxide (22-29) mmol/L Random Glucose 139 H (74-109) mg/dL 05/22/18 Range/Units 08:28 WBC (4.2-12.2) K/uL Lymphocytes % (16-45) % Carbon Dioxide 21.0 L (22-29) mmol/L Random Glucose 162 H (74-109) mg/dL Condition at Discharge: (2) Stable VTE Discharge VTE Reason For No Overlap Therapy: Not Indicated (Mobility not impaired) Discharge Medications - Discharge Medications Prescriptions: Albuterol Sulfate 0.083% [Neb] 2.5 mg INH Q4H PRN #24 nebulization solution PRN Reason: Difficulty In Breathing Azithromycin [Zithromax] 250 mg PO DAILY 3 Days #3 tab Cefdinir 300 mg PO BID #7 capsule Ondansetron [Zofran Odt] 4 mg PO Q8H #24 tab.rapdis Prednisone [Prednisone 20Mg] 60 mg PO DAILYWM 3 Days #9 tab Home Medications: Ambulatory Orders Lamotrigine [Lamictal Xr] 50 mg PO QHS 10/01/17 [Last Taken 05/20/18] Prazosin HCl 2 mg PO QHS 10/01/17 [Last Taken 05/20/18] Quetiapine Fumarate [Seroquel] 50 mg PO QHS 10/01/17 [Last Taken 05/20/18] Bupropion HCl [Wellbutrin Xl] 300 mg PO QD tab 05/19/18 [Last Taken 05/21/18] Mirtazapine [Remeron] 30 mg PO QHS tab 05/19/18 [Last Taken 05/20/18] Medroxyprogesterone Acetate [Depo Provera] 150 mg IM ASDIR 05/21/18 [Last Taken Unknown] Albuterol Sulfate 0.083% [Neb] 2.5 mg INH Q4H PRN #24 nebulization solution [Last Taken Unknown] Azithromycin [Zithromax] 250 mg PO DAILY 3 Days #3 tab 05/23/18 [Last Taken Unknown] Cefdinir 300 mg PO BID #7 capsule 05/23/18 [Last Taken Unknown] Ondansetron [Zofran Odt] 4 mg PO Q8H #24 tab.rapdis 05/23/18 [Last Taken Unknown ] Prednisone [Prednisone 20Mg] 60 mg PO DAILYWM 3 Days #9 tab 05/23/18 [Last Taken Unknown] Discharge Plan - Discharge Instructions Activity at Discharge: Increase Activity as Tolerated Diet at Discharge: Regular Diet Additional Instructions: Start cefdinir 300mg twice daily- first dose tonight Start azithromycin 250mg daily- first dose tomorrow morning Use albuterol nebulizer every 4 hours while awake Prednisone 20mg tablets- take 3 tablets daily with food- first dose tomorrow Zofran 4mg every 8 hours as needed for nausea Try over the counter mucinex to help thin secretions Increase fluid intake Return to the ED if shortness of breath worsens, if you develop a fever, or for any chest pain Follow up with your PCP in 3-5 days Quality Measures - Quality Measures Quality Measures: Documentation of Current Medications in Medical Record, Screening for High Blood Pressure and F/U Documented - Current Medications Quality Measure: Measure #130: Documentation of Current Medications Documentation of Current Medications: <Current Medications Documented/Reviewed> [[id number]] - Blood Pressure Screening Quality Measure: Screening for High Blood Pressure and Follow-Up Documented Does Patient Have Any of the Following: No Blood Pressure Classification: Pre-Hypertensive BP Reading Systolic Measurement: 130 Diastolic Measurement: 88 Screening for High Blood Pressure: < Pre-Hypertensive BP, F/U Documented > [ [id number]] Pre-Hypertensive Follow-up Interventions: Follow-up with rescreen every year. - Elder Abuse Suspicion Index EASI Reference Information: Theo MEDRANO, Joseline C, Chip D, Gonzalo Crooks.Development and validation of a tool to assist physicians identification of elder abuse: The Elder Abuse Suspicion Index (EASI ). Journal of Elder Abuse and Neglect, 2008; 20 (3): 276-300.
[2018-05-23] MEDS ORDERED: ONDANSETRON 4 MG ODT TABLET SL PRN (11:28)
[2018-05-23] MEDS: ACETAMINOPHEN 500 MG TABLET PO PRN (12:18)
== END 2018-05-23 13:15 | disposition home or self-care (01) ==
LOC: ER 21:27 → MEDSURG 23:48
PROVIDERS: ADMIT Internal Medicine; ATTEND Internal Medicine
DX: J18.1 Lobar pneumonia, unspecified organism (principal); R09.02 Hypoxemia; R05 Cough; R50.9 Fever, unspecified; J45.909 Unspecified asthma, uncomplicated; R56.9 Unspecified convulsions; F17.210 Nicotine dependence, cigarettes, uncomplicated; F25.9 Schizoaffective disorder, unspecified
CPT/HCPCS: 85025; 80048 ×2; 80053; 85379; 85027 ×2; 71046; 94640 ×4; 94761; 94760; G0378 ×3; J7512 ×3; J3490 ×3; 96365; 99217; 99220; 99285; J0456; J7030; J7050; J7613